=== PATIENT | female | born 1970 ===

== ENCOUNTER 2018-06-07 10:23 | Emergency (ER) | payer OTHER ==
[~2018-06-07] VITALS: Ht 157.5 cm; Wt 61.2 kg
== END 2018-06-07 16:51 | disposition home or self-care (01) ==
LOC: ER 10:23
DX: S22.31XA Fracture of one rib, right side, initial encounter for closed fracture (principal); W18.39XA Other fall on same level, initial encounter; Y93.89 Activity, other specified; Y92.69 Other specified industrial and construction area as the place of occurrence of the external cause; Y99.8 Other external cause status